=== PATIENT | male | born 1970 ===

== ENCOUNTER 2019-04-14 19:07 | Inpatient (IN) | payer OTHER ==
[~2019-04-14] VITALS: Ht 165.1 cm; Wt 97.4 kg
[2019-04-14] MEDS ORDERED: IBUP-2071 PO (19:39)
[2019-04-14 19:56] LABS: BASOPHILS % (AUTO) 0.9 % (0.0-2.0); EOSINOPHILS % (AUTO) 1.7 % (1.0-6.0); HEMOGLOBIN 14.7 g/dL (13.5-17.5); LYMPHOCYTES # (AUTO) 1.8 K/uL (1.0-4.8); LYMPHOCYTES % (AUTO) 25.4 % (22.0-44.0); MEAN CORPUSCULAR HEMOGLOBIN 29.4 pg (26.0-34.0); MEAN CORPUSCULAR HGB CONC 34.2 G/dL (31.0-37.0); MEAN CORPUSCULAR VOLUME 86 fL (80-100); MONOCYTES # (AUTO) 0.5 K/uL (0.1-1.0); MONOCYTES % (AUTO) 6.7 % (2.0-9.0); NEUTROPHILS # (AUTO) 4.7 K/uL (1.8-7.7); NEUTROPHILS % (AUTO) 65.3 % (40.0-70.0); PLATELET COUNT (AUTO) 249 K/uL (150-450); RED CELL DISTRIBUTION WIDTH 13.4 % (11.5-14.5)
[2019-04-14 20:07] LABS: ANION GAP 10 mmol/L (8-16); CALCIUM, TOTAL 8.7 mg/dL (8.8-10.5); CARBON DIOXIDE 27 mmol/L (22-29); CHLORIDE 104 mmol/L (98-107); CREATININE 1.03 mg/dL (0.60-1.30); GLOMERULAR FILTR. RATE CALC > 60 mL/min (>60); GLUCOSE,RANDOM 131 mg/dL (70-110); POTASSIUM 3.4 mmol/L (3.5-5.1); SODIUM SERUM 141 mmol/L (136-145); UREA NITROGEN, BLOOD 14 mg/dL (7-18)
[2019-04-14 20:13] LABS: ALANINE AMINOTRANSFERASE 28 U/L (12-78); ALBUMIN 3.5 g/dL (3.4-5.0); ALKALINE PHOSPHATASE 59 U/L (46-116); ASPARTATE AMINOTRANSFERASE 13 U/L (15-37); BILIRUBIN,TOTAL 0.3 mg/dL (0.1-1.0); TOTAL PROTEIN, SERUM 6.9 g/dL (6.4-8.2)
[2019-04-14 21:47] VITALS: BP 155/89
[2019-04-14] MEDS ORDERED: NICOTINE 14 MG/24 HOUR PATCH TD PRN (22:00)
[2019-04-14] MEDS ORDERED: MAG HYDROX/AL HYDROX/SIMETH ES 30 ML SUSPENSION UDCUP PO PRN (22:00)
[2019-04-14] MEDS ORDERED: DOCUSATE SODIUM 100 MG CAPSULE PO PRN (22:00)
[2019-04-14] MEDS ORDERED: CloNIDine HCL 0.1 MG TABLET PO PRN (22:00)
[2019-04-14] MEDS ORDERED: PETROLATUM,WHITE 28 GM JELLY TP PRN (22:00)
[2019-04-14] MEDS ORDERED: ONDANSETRON HCL 4 MG TABLET PO PRN (22:00)
[2019-04-14] MEDS ORDERED: GuaiFENesin/D-METHORPHAN [SUGAR-FREE] 200-20MG/10 ML SYRUP UDCUP PO PRN (22:00)
[2019-04-14] MEDS ORDERED: LOPERAMIDE HCL 2 MG CAPSULE PO PRN (22:00)
[2019-04-14] MEDS ORDERED: MAGNESIUM HYDROXIDE SUSPENSION 30 ML UDCUP PO PRN (22:00)
[2019-04-14] MEDS ORDERED: ALBUTEROL SULFATE HFA 90 MCG/PUFF 8 GM INHALER IH PRN (22:00)
[2019-04-14] MEDS ORDERED: POTASSIUM CHLORIDE 20 MEQ ER TABLET PO PRN (22:15)
[2019-04-14] MEDS ORDERED: POTASSIUM CHL 10 MEQ/WATER 50 ML IV PRN (22:15)
[2019-04-15] MEDS ORDERED: INFLUENZA VIRUS VACCINE QVS 2019-20 (3YR+)/PF 60 MCG/0.5 ML SYRINGE IM ONE (00:30)
[2019-04-15 05:01] LABS: APPEARANCE,URINE CLOUDY (CLEAR); BILIRUBIN,URINE NEGATIVE (NEGATIVE); GLUCOSE, URINE (UA) NEGATIVE (NEGATIVE); KETONES,URINE NEGATIVE (NEGATIVE); LEUKOCYTE ESTERASE ,URINE NEGATIVE (NEGATIVE); NITRATE,URINE NEGATIVE (NEGATIVE); OCCULT BLOOD,URINE NEGATIVE (NEGATIVE); PROTEIN,URINE NEGATIVE (NEGATIVE); UROBILINOGEN,URINE 0.2 mg/dL (<=1.0)
[2019-04-15 05:06] LABS: AMPHET/METH SCREEN,URINE NEGATIVE (NEGATIVE); BARBITURATE SCREEN, URINE NEGATIVE (NEGATIVE); BENZODIAZEPINES SCREEN,URINE NEGATIVE (NEGATIVE); CANNABINOID SCREEN,URINE NEGATIVE (NEGATIVE); COCAINE SCREEN,URINE NEGATIVE (NEGATIVE); METHADONE SCREEN, URINE NEGATIVE (NEGATIVE); OPIATE SCREEN,URINE NEGATIVE (NEGATIVE); PHENCYCLIDINE SCREEN,URINE NEGATIVE (NEGATIVE)
[2019-04-15 07:05] LABS: POTASSIUM 3.5 mmol/L (3.5-5.1); THYROID STIMULATING HORMONE 1.15 uIU/mL (0.36-3.74)
[2019-04-15 08:08] VITALS: BP 134/72
[2019-04-15] MEDS: RisperiDONE 1 MG TABLET PO SCH ×2 (11:51→20:25)
[2019-04-15 15:35] VITALS: BP 153/88
[2019-04-15 20:18] VITALS: BP 141/70
[2019-04-16 08:24] VITALS: BP 156/94
[2019-04-16] MEDS: RisperiDONE 1 MG TABLET PO SCH ×2 (08:39→20:24)
[2019-04-16 15:45] VITALS: BP 157/74
[2019-04-16] MEDS: ACETAMINOPHEN 325 MG TABLET PO PRN (19:25)
[2019-04-16 20:07] VITALS: BP 149/83
[2019-04-16] MEDS: IBUPROFEN 400 MG TABLET PO PRN (23:14)
[2019-04-17 04:00] VITALS: BP 139/84
[2019-04-17] MEDS: RisperiDONE 1 MG TABLET PO SCH ×2 (08:38→20:10)
[2019-04-17 08:44] VITALS: BP 144/73
[2019-04-17 19:56] VITALS: BP 146/83
[2019-04-17 23:30] VITALS: BP 152/79
[2019-04-18 04:30] VITALS: BP 155/87
[2019-04-18 07:25] VITALS: BP 141/89
[2019-04-18] MEDS: RisperiDONE 1 MG TABLET PO SCH ×2 (08:06→20:35)
[2019-04-18] MEDS: ACETAMINOPHEN 325 MG TABLET PO PRN (15:25)
[2019-04-18 16:00] VITALS: BP 139/79
[2019-04-18 19:13] VITALS: BP 143/76
[2019-04-18] MEDS: IBUPROFEN 400 MG TABLET PO PRN (23:30)
[2019-04-19 04:26] VITALS: BP 136/78
[2019-04-19 07:41] VITALS: BP 133/82
[2019-04-19] MEDS: IBUPROFEN 400 MG TABLET PO PRN (08:27)
[2019-04-19] MEDS: RisperiDONE 1 MG TABLET PO SCH ×2 (08:27→20:59)
[2019-04-19 15:43] VITALS: BP 139/68
[2019-04-19 20:41] VITALS: BP 135/76
[2019-04-19] MEDS: ACETAMINOPHEN 325 MG TABLET PO PRN (20:59)
[2019-04-20 04:02] VITALS: BP 147/87
[2019-04-20] MEDS: RisperiDONE 1 MG TABLET PO SCH (08:40)
[2019-04-20 08:45] VITALS: BP 185/98
[2019-04-20 09:40] VITALS: BP 133/74
[2019-04-20] MEDS ORDERED: CLON0.1T PO (15:49)
[2019-04-20] MEDS ORDERED: RISP1TAB89 PO (15:52)
[2019-04-20 16:13] VITALS: BP 135/66
== END 2019-04-20 18:54 | DRG 885 ==
LOC: EMS 19:09 → 6S 20:57
PROVIDERS: ADMIT Psychiatry & Neurology Child & Adolescent Psychiatry; ATTEND Internal Medicine
DX: F29 Unspecified psychosis not due to a substance or known physiological condition (principal); E87.6 Hypokalemia; F22 Delusional disorders; I10 Essential (primary) hypertension; F41.9 Anxiety disorder, unspecified; R51 Headache; Z79.899 Other long term (current) drug therapy
CPT/HCPCS: 80307; 84132; 84443; G0480